=== PATIENT | female | born 1975 | race Caucasian/White ===

== ENCOUNTER 2018-04-06 16:52 | Emergency (ER) | payer MEDICAID, OTHER ==
[2018-04-06 17:46] LABS: URINE BLOOD (Dip) POC 2+ (NEGATIVE); URINE GLUCOSE (Dip) POC Negative (NEGATIVE); URINE KETONES (Dip) POC Negative (NEGATIVE); URINE LEUKOCYTE EST (Dip) POC 3+ (NEGATIVE); URINE NITRITE (Dip) POC Negative (NEGATIVE); URINE TOTAL PROTEIN POC 1+ (NEGATIVE)
[2018-04-06 17:46] LABS: URINE PH (Dip) POC 5.5 (5.0-8.5)
[2018-04-06] MEDS: ONDANSETRON (ODT) 4 MG TAB ODT (17:54)
[2018-04-06] MEDS: CIPROFLOXACIN 500 MG TAB PO (17:54)
[2018-04-06] MEDS: HYDROCODONE/APAP (5/325) TAB PO (17:54)
== END 2018-04-06 19:18 | disposition home or self-care (01) ==
LOC: FTE 16:52
DX: N39.0 Urinary tract infection, site not specified (principal); R10.2 Pelvic and perineal pain
CPT/HCPCS: 81003; 81025; 87086; 99283

== ENCOUNTER 2018-12-25 13:17 | Emergency (ER) | payer SELFPAY, MEDICAID | END 2018-12-25 16:16 | disposition home or self-care (01) | LOC: FTE 13:17 | DX: R05 Cough (principal) | CPT/HCPCS: 99283 ==